=== PATIENT | female | born 1965 | race American Indian/Alaskan Native ===

== ENCOUNTER 2016-09-07 08:31 | Outpatient (CLI) | payer OTHER ==
--- NOTE | 2016-09-08 08:51 | Mammography Report ---
BILATERAL DIGITAL SCREENING MAMMOGRAM with CAD: 09/07/16 CLINICAL: Routine screening. COMPARISON:None available. However, a prior mammogram was apparently done 2 years ago at a facility near [facility]. FINDINGS: The breasts are heterogeneously dense, which may obscure small masses. A left asymmetry on the MLO view requires comparison with a prior mammogram or additional imaging of the left breast.No architectural distortion or suspicious calcifications.The right breast is negative. IMPRESSION: Left asymmetry requiring further evaluation. BI-RADS CATEGORY: 0 -- Additional Evaluation Required RECOMMENDATION: Comparison with a previous mammogram. We will attempt to obtain a prior mammogram for comparison. If we do not obtain a prior mammogram within 30 days, a revised report will be issued recommending a recall for further imaging of the left breast. Please be advised that the patient should not schedule an appointment for return until adequate time (at least 2 weeks) has passed for us to obtain the prior mammogram. ACR BI-RADS MAMMOGRAPHIC CODES: 0 = Needs additional imaging evaluation; 1 = Negative; 2 = Benign; 3 = Probably benign; 4 = Suspicious; 5 = Malignant; 6 = Known biopsy-proven malignancy COMMENT: 1. Dense breast tissue, i.e., adenosis, fibrocystic changes, etc., may obscure an underlying neoplasm. 2. Approximately 10% of cancers are not detected with mammography. 3. A negative mammography report should not delay biopsy if a clinically suspicious mass is present. COMMENT: Patient follow-up letters are generated via our [employer] application.
== END 2016-09-07 08:32 | disposition home or self-care (01) ==
LOC: SPVWC 08:31
PROVIDERS: ATTEND Family Medicine
DX: Z12.31 Encounter for screening mammogram for malignant neoplasm of breast (principal)
CPT/HCPCS: 77067; G0202

== ENCOUNTER 2018-03-28 08:22 | Outpatient (CLI) | payer OTHER ==
--- NOTE | 2018-03-28 15:27 | Mammography Report ---
BILATERAL DIGITAL SCREENING MAMMOGRAM with CAD: 03/28/18 08:22:00 CLINICAL: Routine screening. COMPARISON:09/07/16 FINDINGS: The breasts are heterogeneously dense, which may obscure small masses. No mass, architectural distortion or suspicious calcifications. IMPRESSION: No mammographic evidence of malignancy. BI-RADS CATEGORY: 1 - - Negative RECOMMENDATION: Routine mammographic screening in one year. COMMENT: Patient follow-up letters are generated by our [employer] application.
== END 2018-03-28 08:23 | disposition home or self-care (01) ==
LOC: SPVWC 08:22
PROVIDERS: ATTEND Family Medicine
DX: Z12.31 Encounter for screening mammogram for malignant neoplasm of breast (principal)
CPT/HCPCS: 77067

== ENCOUNTER 2018-12-11 14:11 | Outpatient (CLI) | payer OTHER ==
--- NOTE | 2018-12-11 14:54 | XRay Report ---
ROUTINE CHEST, TWO VIEWS: HISTORY: Nonspecific reaction to TB skin test. The trachea, heart, mediastinal contour, lung peterson and bony thorax are unremarkable. Trace right pleural effusion versus pleural thickening is suspected. IMPRESSION: Trace right pleural effusion or pleural thickening. Otherwise, unremarkable chest films.
== END 2018-12-11 14:12 | disposition home or self-care (01) ==
LOC: XRAY 14:11
PROVIDERS: ATTEND Family Medicine
DX: R76.11 Nonspecific reaction to tuberculin skin test without active tuberculosis (principal)
CPT/HCPCS: 71046

== ENCOUNTER 2019-04-09 12:32 | Outpatient (CLI) | payer OTHER ==
--- NOTE | 2019-04-09 14:02 | Mammography Report ---
DIGITAL SCREENING MAMMOGRAM WITH CAD, 04/09/2019 INDICATION: Routine screening mammography. TECHNIQUE: Digital bilateral 2D mammography was obtained in the craniocaudal and mediolateral obliq ue projections. This examination was interpreted with the benefit of Computer-Aided Detection analysi s. COMPARISON: 03/28/2018, 09/07/2016 FINDINGS: Breast Density: The breasts are heterogeneously dense, which may obscure small masses. There is no evidence of dominant mass, suspicious calcifications or architectural distortion in eithe r breast. IMPRESSION: BI-RADS Category 1: Negative. No mammographic evidence of malignancy. Recommend routine screening m ammography in one year. A "normal" or negative report should not discourage follow up or biopsy of a clinically significant f inding. A written summary of these findings will be mailed to the patient. The patient will be entered into a mammography reporting system which will generate a reminder letter for the patient's next appointmen t at the appropriate interval. The [employer] recommends yearly mammograms starting at age 40 and continuing as l cary as a woman is in good health. Breast MRI is recommended for women with an approximate 20-25% or greater lifetime risk of breast cancer, including women with a strong family history of breast or ova radha cancer or who have been treated for Hodgkin's disease. Signer Name: Christopher Coker MD Signed: 04/09/2019 1:57 PM Workstation Name: [id number]
--- NOTE | 2019-04-09 14:14 | XRay Report ---
CHEST 2 VIEWS INDICATION: PLEURAL EFFUSION. COMPARISON: 12/11/2018 FINDINGS: Support devices: None. Heart: Within normal limits. Lungs/pleura: No acute air space or interstitial disease. No pneumothorax. Minimal blunting of the r ight costophrenic angle is again noted which could represent trace pleural effusion or pleural thicke russ. Additional findings: None. IMPRESSION: Trace right pleural effusion versus pleural thickening. Given this finding is unchanged since November, I suspect this represents chronic pleural parenchymal changes and not a small pleural effusion. Signer Name: Meir Astudillo Jr, MD Signed: 04/09/2019 2:09 PM Workstation Name: [id number]
== END 2019-04-09 12:33 | disposition home or self-care (01) ==
LOC: MAMMO 12:32
PROVIDERS: ATTEND Family Medicine
DX: Z12.31 Encounter for screening mammogram for malignant neoplasm of breast (principal)
CPT/HCPCS: 71046; 77067

== ENCOUNTER 2020-04-07 10:17 | Outpatient (CLI) | payer OTHER ==
--- NOTE | 2020-04-07 10:51 | XRay Report ---
RIGHT KNEE 3 VIEWS INDICATION: M25.561 PAIN IN RIGHT KNEE. COMPARISON: None. IMPRESSION: No acute osseous or soft tissue abnormality. Early medial compartment joint space noreen rowing is identified. The lateral compartment and patellofemoral space are unremarkable. No significa nt joint effusion. Signer Name: eMir Astudillo Jr, MD Signed: 04/07/2020 10:47 AM Workstation Name: [id number]
== END 2020-04-07 10:18 | disposition home or self-care (01) ==
LOC: XRAY 10:17
PROVIDERS: ATTEND Nurse Practitioner Primary Care
DX: M17.11 Unilateral primary osteoarthritis, right knee (principal)